=== PATIENT | male | born 1960 | race Caucasian/White ===

== ENCOUNTER 2021-08-21 08:37 | Day surgery (SDC) | payer OTHER ==
[~2021-08-21] VITALS: Ht 170.2 cm; Wt 91.9 kg
[~2021-08-21 08:37] MED LIST: ASPI325 PO; ASPI81CH PO; ATOR20 PO; CIPDEXSU LEFTEAR; EAR WAX DROPS15 ML LEFTEAR; GEMF600 PO; GLIM2 PO; LOSA25 PO; LOSA50 PO; METFORMIN HCL1000 MG PO; METO50ER PO; PIOG15 PO; SITA100T2 PO
--- NOTE | 2021-08-21 09:28 | NUR ---
08/21/21 0928 Victorino Mazariegos CALL LIGHT WITHIN REACH. TETRA DROPS AT 0923 PLEDGETT AT 0994
== END 2021-08-21 11:22 | disposition home or self-care (01) ==
LOC: ORSCSDS 08:37
PROVIDERS: Ophthalmology
PROC: 08RK3JZ Replacement of Left Lens with Synthetic Substitute, Percutaneous Approach (ICD-10-PCS; principal; 2021-08-21 10:00)
DX: H25.12 Age-related nuclear cataract, left eye (principal); E11.9 Type 2 diabetes mellitus without complications; I10 Essential (primary) hypertension; E66.9 Obesity, unspecified; Z68.31 Body mass index [BMI] 31.0-31.9, adult; Z87.891 Personal history of nicotine dependence; Z79.82 Long term (current) use of aspirin; Z79.84 Long term (current) use of oral hypoglycemic drugs; Z79.899 Other long term (current) drug therapy
CPT/HCPCS: 82947; J2001; J2250; J3010; J3301; J7040

== ENCOUNTER 2022-02-23 10:14 | Inpatient (IN) | payer OTHER ==
[~2022-02-23] VITALS: Ht 170.2 cm; Wt 88.3 kg
[~2022-02-23 10:14] MED LIST changes: -Actos15 MG PO; -Aspir 8181 MG PO; -CLOBETASOL EMOL15 G2 TOP; -TRULICITY0.75 MG/01 SC
[2022-02-23] MEDS ORDERED: Aspir 8181 MG PO (10:45)
[2022-02-23] MEDS ORDERED: CLOBETASOL EMOL15 G2 TOP (10:46)
[2022-02-23] MEDS ORDERED: LOSA50 PO (10:47)
[2022-02-23] MEDS ORDERED: GEMF600 PO (10:47)
[2022-02-23] MEDS ORDERED: METO50ER PO (10:48)
[2022-02-23 10:49] LABS: BASOPHILS ABSOLUTE AUTO 0.03 K/mm3 (0.00-0.23); BASOPHILS PERCENT AUTO 0 % (0-2); EOSINOPHILS ABSOLUTE AUTO 0.21 K/mm3 (0.00-0.68); EOSINOPHILS PERCENT AUTO 2 % (0-6); Hemoglobin 17.6 g/dL (13.5-17.5); IMMATURE GRAN ABSOLUTE AUTO 0.06 K/mm3 (0.00-0.10); IMMATURE GRAN PERCENT AUTO 1 % (0-1); LYMPHOCYTES ABSOLUTE AUTO 1.34 K/mm3 (0.84-5.20); LYMPHOCYTES PERCENT AUTO 14 % (21-46); MONOCYTES ABSOLUTE AUTO 0.65 K/mm3 (0.16-1.47); MONOCYTES PERCENT AUTO 7 % (4-13); Mean Corpuscular HGB 29.2 pg (26.0-34.0); Mean Corpuscular HGB Conc 35.2 g/dL (31.5-36.5); Mean Corpuscular Volume 83 fL (80-100); Mean Platelet Volume 10.6 fL (9.1-12.4); NEUTROPHILS ABSOLUTE AUTO 7.33 K/mm3 (1.96-9.15); NEUTROPHILS PERCENT AUTO 76 % (41-73); Platelet Count 248 K/mm3 (150-400); RDW Coefficient Variation 11.8 % (11.7-14.2); RDW Standard Deviation 35.5 fL (35.1-46.3); Red Blood Cell Count 6.03 M/mm3 (4.30-5.90); White Blood Cell Count 9.62 K/mm3 (4.00-11.30)
[2022-02-23] MEDS ORDERED: Actos15 MG PO (10:49)
[2022-02-23] MEDS ORDERED: TRULICITY0.75 MG/01 SC (10:51)
[2022-02-23 11:06] LABS: Albumin, Blood 3.5 g/dL (3.4-5.0); Albumin/Globulin Ratio 0.9 (0.8-1.8); Bilirubin, Total 1.1 mg/dL (0.1-1.0); Bun/Creatinine Ratio 26.2 (12.0-20.0); Calcium, Blood 9.2 mg/dL (8.5-10.1); Creatinine, Blood 0.76 mg/dL (0.60-1.20); Globulin, Blood 3.9 g/dL (2.2-4.0); Potassium, Blood 4.4 mmol/L (3.5-5.5); Total Protein, Blood 7.4 g/dL (6.4-8.2)
--- NOTE | 2022-02-23 20:05 | NUR ---
END OF SHIFT SUMMARY: PATIENT ARRIVED TO UNIT WITH AT SIDE. PATIENT REPORTED MILD, SUBSTERNAL CHEST PAIN. PATIENT REPORTED THAT IT WAS MUCH IMPROVED AND THAT IT WAS A 1/10. PATIENT DENIED RADIATION OF CHEST PAIN, SHORTNESS OF BREATH, NAUSEA/VOMITING OR DISPLAYED ANY DIAPHORESIS THROUGHOUT THE SHIFT. PATIENT ABLE TO TOLERATE HIS MEAL WITHOUT ANY CHANGES TO HIS STATUS. PATIENT ABLE TO SLEEP COMFORTABLY AFTER INITIAL ASSESSMENT AND ARRIVAL TO THE UNIT. VITALS STABLE IN COMPARISON TO PRIOR VITALS. KEPT DR. ROBERTS AWARE OF PATIENT'S STATUS AND LAB RESULTS. NEW ORDERS RECEIVED AND ENTERED.
[2022-02-23 20:39] LABS: Anti-Xa UFH, PHA Monitoring <0.10 IU/mL; International Normalized Ratio 0.98; Prothrombin Time Results 10.3 Sec (9.7-11.5)
[2022-02-24 03:15] LABS: BASOPHILS ABSOLUTE AUTO 0.05 K/mm3 (0.00-0.23); BASOPHILS PERCENT AUTO 1 % (0-2); EOSINOPHILS ABSOLUTE AUTO 0.31 K/mm3 (0.00-0.68); EOSINOPHILS PERCENT AUTO 4 % (0-6); Hematocrit 50.5 % (37.0-53.0); Hemoglobin 17.5 g/dL (13.5-17.5); IMMATURE GRAN ABSOLUTE AUTO 0.05 K/mm3 (0.00-0.10); IMMATURE GRAN PERCENT AUTO 1 % (0-1); LYMPHOCYTES ABSOLUTE AUTO 2.06 K/mm3 (0.84-5.20); LYMPHOCYTES PERCENT AUTO 24 % (21-46); MONOCYTES ABSOLUTE AUTO 0.63 K/mm3 (0.16-1.47); MONOCYTES PERCENT AUTO 7 % (4-13); Mean Corpuscular HGB 28.9 pg (26.0-34.0); Mean Corpuscular HGB Conc 34.7 g/dL (31.5-36.5); Mean Corpuscular Volume 84 fL (80-100); Mean Platelet Volume 10.5 fL (9.1-12.4); NEUTROPHILS PERCENT AUTO 64 % (41-73); Platelet Count 253 K/mm3 (150-400); RDW Standard Deviation 36.1 fL (35.1-46.3); Red Blood Cell Count 6.05 M/mm3 (4.30-5.90)
[2022-02-24 03:40] LABS: Albumin, Blood 3.4 g/dL (3.4-5.0); Anion Gap 10 mmol/L (6-16); Blood Urea Nitrogen 21 mg/dL (8-24); Bun/Creatinine Ratio 24.3 (12.0-20.0); CHOL/HDL RATIO 8.3; CO2, Blood 24 mmol/L (21-32); Calcium, Blood 8.6 mg/dL (8.5-10.1); Chloride, Blood 103 mmol/L (98-108); Cholesterol 281 mg/dL (50-200); Creatinine, Blood 0.86 mg/dL (0.60-1.20); Glomerular Filtration Rate 99 (60-); Glucose, Blood 230 mg/dL (70-99); HDL Cholesterol 34 mg/dL (>39); LDL/HDL RATIO Unable to Calculate; Low Density Lipoprotein Chol Unable to Calculate mg/dL (0-110); Magnesium, Blood 1.7 mg/dL (1.6-2.4); Phosphorus, Blood 3.5 mg/dL (2.5-4.9); Potassium, Blood 3.9 mmol/L (3.5-5.5); Sodium, Blood 137 mmol/L (136-145); Triglycerides 571 mg/dL (30-160); Very Low Density Lipoprot Chol Unable to Calculate mg/dL (6-32)
--- NOTE | 2022-02-24 05:01 | NUR ---
SHIFT SUMMARY A/OX4, IND TO BATHROOM. ELEVATED TROPS, HEPARIN DRIP STARTED THIS SHIFT. PT C/O INTERMITTENT /10 SUBSTERNAL CHEST PAIN THAT RADIATES SLIGHTLY TO LUE. TELE SR IN THE 80S. VSS, NO ACUTE CHANGES AT THIS TIME. BED IN LOWEST POSITION WITH CALL LIGHT IN REACH. WILL CONTINUE TO MONITOR AND REPORT TO ONCOMING RN.
[2022-02-24 08:52] LABS: SARS-Cov-2 (COVID-19) PCR, MMC NEGATIVE (NEGATIVE)
--- NOTE | 2022-02-24 10:57 | NUR ---
PT TO TRANSFER TO PCU 12 POST ANGIOGRAM PROCEDURE. REPORT GIVEN TO CHITRA PIANO MAKER. PT BELONGINGS TRANSPORTED TO ROOM PCU 12.
--- NOTE | 2022-02-24 14:26 | NUR ---
PT ARRIVES TO ICU 1 @ 1458, COMPLAINS OF HEADACHE AND STOMACH ACHE. PT ON AGGRASTAT @ 16.5 ML/HR, NITRO GTT @ 10MCG/MIN. RIGHT WRIST ACCESS SITE C/D/I, 12ML AIR IN TR BAND. AND MOM TO HIS BEDSIDE. PT'S BG 355, INSULIN COVERAGE GIVEN. DIET SQUIRT AND CHEESE GIVEN TO HELP WITH NAUSEA.
--- NOTE | 2022-02-24 17:11 | NUR ---
PT CONTINUES WITH NAUSEA, NITRO GTT PLACED ON STANDBY. PT CONT IN SR, SATS 95%, RESP. RATE 16. BP 137/86. DENIES CHEST PAIN, JUST NAUSEA ESPECIALLY WHEN LOOKING AROUND. AGGRASTAT CONTINUES SAME RATE. PT TRYING TO GET COMFORTABLE, NORMALLY A STOMACH SLEEPER. TR BAND NOT ADJUSTED YET. BLOOD SUGARS REMAIN ELEV. IN THE 300'S COVERED WITH INSULIN. MADE AWARE. ORDERS RECEIVED. BROTHER IN ROOM WITH PATIENT.
--- NOTE | 2022-02-24 17:41 | NUR ---
PT CONTINUES TO DEAL WITH NAUSEA AND HEADACHE, CONTINUES TO DENY CHEST PAIN. CAME IN AND SPOKE WITH PATIENT ABOUT HIS CARE AND CURRENT PLAN. PT AND BROTHER WERE ABLE TO ASK QUESTIONS. PT TOOK IN ABOUT 30% OF HIS DINNER, STATES THAT HE BELIEVES THE NAUSEA COMES FROM HIS HEAD "FEELING NOT RIGHT". IF HE TRIES TO FOCUS ON SOMETHING, HE FEELS LIKE "THROWING UP". DENIES ANY CHEST PAIN.
--- NOTE | 2022-02-24 19:05 | NUR ---
Assumed care. Report received from dayshift RN. Pt resting in bed, alert and oriented, on room air. IV access in L/forearm, Aggrastat running at 0.156 mcg/kg/min, Nitro on standby. TR band in place, R/radial site, 12ml in band currently per dayshift RN. No swelling/ecchymosis noted at site. VS stable, will continue to monitor.
--- NOTE | 2022-02-25 06:40 | NUR ---
Shift summary. Pt rested in bed throughout shift. Alert and oriented, pt asked for CPAP and then a NC for supplemental 02 while sleeping, he wasn't able to tolerate the CPAP. Currently on 02 at 1 l/min via NC. Additional IV placed in R/forearm. Aggrastat running at .156 mcg/kg/min. Pt troponin elevated during shift, Dr. Hernandez notified, no further orders given. VS stable throughout shift, see assessment for further details. Will continue to monitor and report off to dayshift RN.
[2022-02-25 07:01] LABS: BASOPHILS ABSOLUTE AUTO 0.04 K/mm3 (0.00-0.23); BASOPHILS PERCENT AUTO 0 % (0-2); EOSINOPHILS ABSOLUTE AUTO 0.18 K/mm3 (0.00-0.68); EOSINOPHILS PERCENT AUTO 2 % (0-6); Hemoglobin 16.6 g/dL (13.5-17.5); IMMATURE GRAN ABSOLUTE AUTO 0.06 K/mm3 (0.00-0.10); IMMATURE GRAN PERCENT AUTO 1 % (0-1); LYMPHOCYTES ABSOLUTE AUTO 1.43 K/mm3 (0.84-5.20); LYMPHOCYTES PERCENT AUTO 15 % (21-46); MONOCYTES ABSOLUTE AUTO 0.75 K/mm3 (0.16-1.47); MONOCYTES PERCENT AUTO 8 % (4-13); Mean Corpuscular HGB Conc 34.6 g/dL (31.5-36.5); Mean Corpuscular Volume 84 fL (80-100); Mean Platelet Volume 10.3 fL (9.1-12.4); NEUTROPHILS ABSOLUTE AUTO 7.42 K/mm3 (1.96-9.15); NEUTROPHILS PERCENT AUTO 75 % (41-73); Platelet Count 251 K/mm3 (150-400); RDW Coefficient Variation 12.1 % (11.7-14.2); RDW Standard Deviation 36.7 fL (35.1-46.3); Red Blood Cell Count 5.73 M/mm3 (4.30-5.90); White Blood Cell Count 9.88 K/mm3 (4.00-11.30)
[2022-02-25 07:20] LABS: Albumin, Blood 3.2 g/dL (3.4-5.0); Anion Gap 9 mmol/L (6-16); Blood Urea Nitrogen 19 mg/dL (8-24); Bun/Creatinine Ratio 23.2 (12.0-20.0); CO2, Blood 23 mmol/L (21-32); Calcium, Blood 8.6 mg/dL (8.5-10.1); Chloride, Blood 103 mmol/L (98-108); Creatinine, Blood 0.82 mg/dL (0.60-1.20); Glomerular Filtration Rate 100 (60-); Glucose, Blood 242 mg/dL (70-99); Magnesium, Blood 2.2 mg/dL (1.6-2.4); Phosphorus, Blood 2.8 mg/dL (2.5-4.9); Potassium, Blood 4.1 mmol/L (3.5-5.5); Sodium, Blood 135 mmol/L (136-145)
--- NOTE | 2022-02-25 07:26 | NUR ---
CARE OF PT ASSUMED AT 0700. PT SLEEPING, AWAKENS TO VOICE. DR HOUSTON IN TO SEE PT THIS AM. AGGRASTAT INFUSING AT 0.15/MCG/KG/MIN, GTT TO CONTINUE X18HRS. PLAVIX TO START TOMORROW. PT DENIES C/O CHEST PAIN/PRESSURE, DENIES NAUSEA. TR BAND WITH AIR REMOVED TO RIGHT WRIST, ART SITE WNL, WRIST IMMOBILIZER ON; WILL REMOVE TR BAND THIS AM. DR HOUSTON AWARE OF TROPONINS.
--- NOTE | 2022-02-25 11:36 | NUR ---
BURDEN IN TO SEE PT, PT PCU STATUS. PT SLEEPING W/O COMPLAINTS.
--- NOTE | 2022-02-25 12:11 | NUR ---
OOB TO CHAIR FOR LUNCH. BS 300, COVERED WITH 12UNITS INSULIN. PT DENIES PAIN.
--- NOTE | 2022-02-25 17:32 | NUR ---
REPORT GIVEN TO NATALI MENON RN
--- NOTE | 2022-02-25 18:42 | NUR ---
Patient arrived a short time ago and tucked into bed and hooked to monitor. He has TR Band site with clear opsite , no swelling, hematoma or blood, and wrist support in place. He is oriented and is able to communicate his needs. He has aggrostat infusingat 15.8 mls and stops at 1999 and give 300mg Plavix. He has bilateral FA IV's, left one infusing aggrastat and other flushed and SL'd. He is independent in room.
--- NOTE | 2022-02-26 06:08 | NUR ---
SHIFT SUMMARY PT ALERT AND ORIENTED X4. HR SR 60-90'S. AFEBRILE. BP STABLE. ON RA SATS OVER 95%. AGROSTAT SHUT OFF AT 1999 AND PLAVIX GIVEN PER MD ORDER. PT HAD X2 EPISODE OF EPISTAXIS EARLY IN EVENING. R RADIAL SITE C/D/I. INDEPENDENT FOR ADL'S. IN BED SLEEPING WITH CALL ALARM AT SIDE, WILL CONTINUE TO MONITOR UNTIL REPORT GIVEN TO DAYSHIFT RN
[2022-02-26] MEDS ORDERED: CLOP75 PO (12:21)
--- NOTE | 2022-02-26 12:51 | NUR ---
IVs REMOVED x2 AND PRESSURE DRESSED. PT EDCUATED ON ANGIO SITE, AND NEW MEDICATIONS, PT AWARE THAT CARDIOLOGY OFFICE WILL BE CALLING HIM FOR FOLLOW UP APPOINTMENT THEY WERE NOT ABLE TO SCHEDULE AT THE TIME THIS CALLED TO MAKE APPOINTMENT. PT EXPRESSED UNDERSTANDING OF DC TEACHING AND DENIES FURTHER QUESTIONS OR NEEDS
== END 2022-02-26 13:49 | disposition home or self-care (01) | DRG 271 ==
LOC: ER 10:14 → MEDS 10:15 → PCU 02-24 11:25 → ICUE 02-24 12:47 → PCU 02-25 18:37
PROVIDERS: Emergency Medicine; ADMIT Family Medicine
PROC: 027135Z Dilation of Coronary Artery, Two Arteries with Two Drug-eluting Intraluminal Devices, Percutaneous Approach (ICD-10-PCS; principal; 2022-02-24)
PROC: X2CY3T7 Extirpation of Matter from Great Vessel using Computer-aided Mechanical Aspiration, Percutaneous Approach, New Technology Group 7 (ICD-10-PCS; 2022-02-24)
PROC: B2111ZZ Fluoroscopy of Multiple Coronary Arteries using Low Osmolar Contrast (ICD-10-PCS; 2022-02-24)
DX: I21.4 Non-ST elevation (NSTEMI) myocardial infarction (principal); T82.855A Stenosis of coronary artery stent, initial encounter; T82.867A Thrombosis due to cardiac prosthetic devices, implants and grafts, initial encounter; Z88.5 Allergy status to narcotic agent; Z95.5 Presence of coronary angioplasty implant and graft; Z88.8 Allergy status to other drugs, medicaments and biological substances; I69.398 Other sequelae of cerebral infarction; Z20.822 Contact with and (suspected) exposure to COVID-19; E78.5 Hyperlipidemia, unspecified; I10 Essential (primary) hypertension; I25.2 Old myocardial infarction; Z79.82 Long term (current) use of aspirin; Z79.899 Other long term (current) drug therapy; Z79.84 Long term (current) use of oral hypoglycemic drugs; E11.65 Type 2 diabetes mellitus with hyperglycemia
CPT/HCPCS: 36415; 71045; 76937; 78451; 80053; 80061; 80069; 82947; 83036; 83735; 84443; 84484; 85025; 85520; 85610; 92973; 92978; 93005; 93010; 93306; 93454; 94660; 94762; 96374; 96375; 96376; 99152; 99153; 99285-25; A9270; A9500; C1725; C1753; C1757; C1769; C1874; C1887; C1894; C9600; G0378; J0360; J0461; J1644; J2250; J2405; J3010; J3246; J7030; J7040; Q9967; U0004

== ENCOUNTER → 2022-02-23 | Outpatient (CLI) | payer OTHER ==
[~2022-02-23] MED LIST changes: +Actos15 MG PO; +Amaryl1 MG PO; +Aspir 8181 MG PO; +CLOBETASOL EMOL15 G2 TOP; -GLIM2 PO; +TRULICITY0.75 MG/01 SC
[2022-02-23 10:16] LABS: BASOPHILS ABSOLUTE AUTO 0.05 K/mm3 (0.00-0.23); BASOPHILS PERCENT AUTO 1 % (0-2); EOSINOPHILS ABSOLUTE AUTO 0.23 K/mm3 (0.00-0.68); EOSINOPHILS PERCENT AUTO 3 % (0-6); Hematocrit 50.2 % (37.0-53.0); Hemoglobin 17.9 g/dL (13.5-17.5); IMMATURE GRAN ABSOLUTE AUTO 0.07 K/mm3 (0.00-0.10); IMMATURE GRAN PERCENT AUTO 1 % (0-1); LYMPHOCYTES ABSOLUTE AUTO 1.39 K/mm3 (0.84-5.20); LYMPHOCYTES PERCENT AUTO 17 % (21-46); MONOCYTES ABSOLUTE AUTO 0.71 K/mm3 (0.16-1.47); MONOCYTES PERCENT AUTO 9 % (4-13); Mean Corpuscular HGB 29.7 pg (26.0-34.0); Mean Corpuscular HGB Conc 35.7 g/dL (31.5-36.5); Mean Corpuscular Volume 83 fL (80-100); Mean Platelet Volume 11.2 fL (9.1-12.4); NEUTROPHILS ABSOLUTE AUTO 5.88 K/mm3 (1.96-9.15); NEUTROPHILS PERCENT AUTO 71 % (41-73); Platelet Count 232 K/mm3 (150-400); RDW Coefficient Variation 12.3 % (11.7-14.2); RDW Standard Deviation 36.7 fL (35.1-46.3); Red Blood Cell Count 6.02 M/mm3 (4.30-5.90); White Blood Cell Count 8.33 K/mm3 (4.00-11.30)
[2022-02-23 10:27] LABS: Albumin, Blood 3.6 g/dL (3.4-5.0); Albumin/Globulin Ratio 0.9 (0.8-1.8); Bilirubin, Total 1.1 mg/dL (0.1-1.0); Bun/Creatinine Ratio 17.7 (12.0-20.0); Calcium, Blood 9.2 mg/dL (8.5-10.1); Creatinine, Blood 1.13 mg/dL (0.60-1.20); Globulin, Blood 3.9 g/dL (2.2-4.0); Potassium, Blood 4.4 mmol/L (3.5-5.5); Total Protein, Blood 7.5 g/dL (6.4-8.2)
== END | disposition home or self-care (01) ==
LOC: LAB SHORT 10:09 → LAB 10:09
PROVIDERS: Physician Assistant
DX: R07.9 Chest pain, unspecified (principal)
CPT/HCPCS: 80053; 84484; 85025; 85379

== ENCOUNTER 2022-03-04 12:14 | Inpatient (IN) | payer OTHER ==
[~2022-03-04] VITALS: Ht 170.2 cm; Wt 87.7 kg
[~2022-03-04 12:14] MED LIST changes: +Actos15 MG PO; +Aspir 8181 MG PO; +CLOBETASOL EMOL15 G2 TOP; +CLOP75 PO; +TRULICITY0.75 MG/01 SC
[2022-03-04 12:46] LABS: BASOPHILS ABSOLUTE AUTO 0.04 K/mm3 (0.00-0.23); BASOPHILS PERCENT AUTO 1 % (0-2); EOSINOPHILS ABSOLUTE AUTO 0.24 K/mm3 (0.00-0.68); EOSINOPHILS PERCENT AUTO 3 % (0-6); Hematocrit 51.4 % (37.0-53.0); Hemoglobin 17.7 g/dL (13.5-17.5); IMMATURE GRAN ABSOLUTE AUTO 0.04 K/mm3 (0.00-0.10); IMMATURE GRAN PERCENT AUTO 1 % (0-1); LYMPHOCYTES ABSOLUTE AUTO 1.36 K/mm3 (0.84-5.20); LYMPHOCYTES PERCENT AUTO 18 % (21-46); MONOCYTES ABSOLUTE AUTO 0.63 K/mm3 (0.16-1.47); MONOCYTES PERCENT AUTO 9 % (4-13); Mean Corpuscular HGB 28.7 pg (26.0-34.0); Mean Corpuscular HGB Conc 34.4 g/dL (31.5-36.5); Mean Corpuscular Volume 83 fL (80-100); Mean Platelet Volume 10.3 fL (9.1-12.4); NEUTROPHILS ABSOLUTE AUTO 5.08 K/mm3 (1.96-9.15); NEUTROPHILS PERCENT AUTO 69 % (41-73); Platelet Count 248 K/mm3 (150-400); RDW Coefficient Variation 11.9 % (11.7-14.2); RDW Standard Deviation 35.8 fL (35.1-46.3); Red Blood Cell Count 6.16 M/mm3 (4.30-5.90); White Blood Cell Count 7.39 K/mm3 (4.00-11.30)
[2022-03-04 13:03] LABS: Albumin, Blood 3.9 g/dL (3.4-5.0); Albumin/Globulin Ratio 0.9 (0.8-1.8); Bilirubin, Total 0.9 mg/dL (0.1-1.0); Calcium, Blood 9.6 mg/dL (8.5-10.1); Creatinine, Blood 0.96 mg/dL (0.60-1.20); Globulin, Blood 4.3 g/dL (2.2-4.0); Potassium, Blood 4.5 mmol/L (3.5-5.5); Total Protein, Blood 8.2 g/dL (6.4-8.2)
[2022-03-05 01:08] LABS: Anti-Xa UFH, PHA Monitoring <0.10 IU/mL; International Normalized Ratio 1.05
[2022-03-05 03:14] LABS: BASOPHILS ABSOLUTE AUTO 0.05 K/mm3 (0.00-0.23); BASOPHILS PERCENT AUTO 1 % (0-2); EOSINOPHILS ABSOLUTE AUTO 0.42 K/mm3 (0.00-0.68); EOSINOPHILS PERCENT AUTO 5 % (0-6); Hemoglobin 16.1 g/dL (13.5-17.5); IMMATURE GRAN ABSOLUTE AUTO 0.05 K/mm3 (0.00-0.10); IMMATURE GRAN PERCENT AUTO 1 % (0-1); LYMPHOCYTES ABSOLUTE AUTO 2.28 K/mm3 (0.84-5.20); LYMPHOCYTES PERCENT AUTO 27 % (21-46); MONOCYTES ABSOLUTE AUTO 0.68 K/mm3 (0.16-1.47); MONOCYTES PERCENT AUTO 8 % (4-13); Mean Corpuscular HGB 29.4 pg (26.0-34.0); Mean Corpuscular Volume 84 fL (80-100); Mean Platelet Volume 10.1 fL (9.1-12.4); NEUTROPHILS ABSOLUTE AUTO 4.94 K/mm3 (1.96-9.15); NEUTROPHILS PERCENT AUTO 59 % (41-73); Platelet Count 249 K/mm3 (150-400); RDW Coefficient Variation 11.9 % (11.7-14.2); RDW Standard Deviation 36.1 fL (35.1-46.3); Red Blood Cell Count 5.47 M/mm3 (4.30-5.90); White Blood Cell Count 8.42 K/mm3 (4.00-11.30)
[2022-03-05 03:34] LABS: Bun/Creatinine Ratio 28.2 (12.0-20.0); Calcium, Blood 8.7 mg/dL (8.5-10.1); Creatinine, Blood 0.85 mg/dL (0.60-1.20); Magnesium, Blood 1.9 mg/dL (1.6-2.4); Potassium, Blood 4.1 mmol/L (3.5-5.5)
--- NOTE | 2022-03-05 05:09 | NUR ---
SHIFT SUMMARY PT. CAME IN OVERNIGHT AROUND 2100 WITH CHEST PAIN AND A CLIMBING TROPONIN. LAST TROPONIN WAS DRAWN AT 0300 AND CAME BACK A CRITICAL OF 3993. HEPARIN WAS STARTED AND LABS ARE ORDERED FOR 0700 TO ADJUST HEPARIN RATE. BP WAS WNL AND HR WAS NSR WITH RATES BETWEEN 70-90. ASIDE FROM CARDIAC COMPLAINTS, ALL OTHER SYSTEMS WERE WNL. PT. IS NOT HAVING CHEST PAIN AND IS RESTING COMFORTABLY AT THIS TIME.
--- NOTE | 2022-03-05 07:15 | NUR ---
INITIAL ASSESSMENT: Patient is resting on his left side in bed with eyes closed, easily awakens. He denies CP or SOB at this time. HRR, SR in the 70s with minimal st depression noted. LS CTA, Biox 97% on RA. BT+. PPP, no edema present. He has hep gtt at 15 units/kg/hr. VSS. Patient denies other needs at this time. Will continue to monitor.
--- NOTE | 2022-03-05 09:15 | NUR ---
Update: Cardiology is here to see the patient, plan is for an angiogram later today. Pt has been NPO since midnight. Patient denies chest pain at this time. Call light in reach.
--- NOTE | 2022-03-05 13:20 | NUR ---
Update: Patient arrived back from the catheterization laboratory technician, no interventions done. Patient may be possibly discharged this afternoon. TR band to right wrist, 9cc of air in band. Site is clear, no bleeding or hematoma noted. VSS. Patient denies other needs at this time. Call light in reach.
--- NOTE | 2022-03-05 17:31 | NUR ---
Summary: Patient is here with chest pain. He is alert and oriented. No C/O pain this shift. HRR in the 70s. LS Clear, biox is WNL on RA. Patients troponin peaked at 3993 and trended down from there. Dr. Gann took him to the collaborating supervising physician, his coronaries are clear. TR band to right wrist fully recovered without rebleed or hematoma. Arm board to right wrist. Blood sugars covered with high sliding scale. Patient has been independent in the room with BRP. He has been cleared by Cardiology. Dr. Cunningham would like to keep the patient one more night for monitoring as he was started on Brillinta and Crestor and has had previous reactions to similar medications. Patient is currently resting in bed. WIll report to oncoming RN.
--- NOTE | 2022-03-06 06:04 | NUR ---
NO ACUTE EVENTS OVERNIGHT. NO COMPLAINTS OF CHEST PAIN OR PRESSURE. PT DENIED SHORTNESS OF BREATH. RIGHT RADIAL PUNCTURE SITE CLEAN/DRY/INTACT WITH SLIGHT ECCHYMOSIS AT SITE. EDUCATION PROVIDED REGARDING RESTRICTIONS OF USE OF RIGHT UPPER EXTREMITY FOR THE NEXT 72 HOURS. EDUCATION PROVIDED FOR THE MEDICATIONS BRILINTA AND CRESTOR.
--- NOTE | 2022-03-06 09:22 | NUR ---
CARE ASSUMPTION THIS RN ASSUMED CARE AT 0700 FROM MICHELE BRITT. VSS. TELE SR 70. PATIENT IS ALERT AND ORIENTED X4. NEURO INTACT. PERRLA. PATIENT REPORTS NO PAIN. PATIENT REPROTS NO CHEST PAIN/PRESSURE. STRONG RADIAL AND PEDIS PULSE. NO EDEMA NOTED. NO CARDIAC DISTRESS THIS AM. PATIENT REPROTS NO SHORTNESS OF BREATH. CLEAR LUNG SOUNDS. PATIENT ABD IS SOFT NONTENDER AND ACTIVE. PATIENT SKIN IS CLEAN DRY AND INACT. S/P RIGHT RADIAL SITE IS CLEAN DRY AND INACT, SMALL BRUSING AT SITE, BUT NO HEMATOMA OR TENDERNESS. PATIENT IS INDEPDENT IN THE ROOM AND INDEPDENT WHEN DOING ADLS. SEE SHIFT ASSESSMENT FOR FURTHER DETAILS. PATIENT CALLS IF NEEDED ASSISTANCE. PATIENT WAS ASKING ABOUT GOING HOME THIS AM. THIS RN EDUCATED HIM ON THE PLAN OF CARE AND WE WILL KNOW FINALIZED DETAILS AFTER THE DOCTOR ROUNDS. PATIENT VERBALIZED UNDERSTANDING. PATIENT TAKE MEDS HOLE WITH WATER AND CAN TAKE MULTIPLE AT A TIME. PATIENT EDUCATED ON MEDICATION AND EDUCATED ON INSULIN THAT PATIENT RECEIVED WITH MORNING MEDICATIONS. PATIENT VOCALIZED CONCERN WITH HIS BLOOD SUGAR BEING HIGHER THAN NORMAL. THIS RN EDUCATED THAT STRESS CAN INCREASE HIS BLOOD SUGAR AND THIS COULD BE WHY. PATIENT VERABLIZED UNDERSTANDNING. PLAN OF CARE UP TO DATE. WILL CONTINUE TO MONITOR AND PROVIDE CARE.
[2022-03-06] MEDS ORDERED: AMLO5 PO (11:28)
[2022-03-06] MEDS ORDERED: METO50ER PO (11:29)
[2022-03-06] MEDS ORDERED: PANTOPRAZOLE SO40 M2 PO (11:30)
[2022-03-06] MEDS ORDERED: TICA90TA PO (11:31)
[2022-03-06] MEDS ORDERED: ROSU10TA PO (11:31)
--- NOTE | 2022-03-06 12:53 | NUR ---
UPDATE PATIENT HOME MED REC COMPLETED AND NEW MEDICATIONS FOR DISCHARGE HAVE BEEN FAXED OVER TO HIS PHARMACY, AT [facility]. AWAITING FOR FINALIZED DISCHARGE ORDERS AND THEN THIS RN WILL GO OVER ANY NEW DISCHARGE EDUCATION. THIS RN WENT OVER DISCHARGE MED EDUCATION AND RADIAL SITE CARE.
[2022-03-06] MEDS ORDERED: METF500 PO (13:41)
--- NOTE | 2022-03-06 14:37 | NUR ---
DISCHARGE PATIENT PROVIDED DISCHARGE EDUCATION BY THIS RN AND FINISHING RANGE FEEDER YUE. WENT OVER MEDICATIONS IN DETAIL AND FOLLOW UP APPOINTMENTS. PRINTED HAND OUTS WERE GIVEN TO PATIENT TO REFER TO FOR EDUCATION ON MEDICATIONS. MEDICATIONS FAXED TO [facility] AND RECEIVED CONFIRMATION OF RECEIVING THE FAX. PATIENT LEFT WITH FAMILY AND ALL PERSONALY BELONGINGS. PATIENT WAS IN NO DISTRESS WHEN LEAVING THE HOSPITAL.
== END 2022-03-06 14:02 | disposition home or self-care (01) | DRG 281 ==
LOC: ER 12:14 → PCU 12:15
PROVIDERS: Family Medicine; Physician Assistant; ADMIT Internal Medicine
PROC: 4A023N7 Measurement of Cardiac Sampling and Pressure, Left Heart, Percutaneous Approach (ICD-10-PCS; principal; 2022-03-05)
PROC: B2111ZZ Fluoroscopy of Multiple Coronary Arteries using Low Osmolar Contrast (ICD-10-PCS; 2022-03-05)
DX: I25.119 Atherosclerotic heart disease of native coronary artery with unspecified angina pectoris (principal); I21.4 Non-ST elevation (NSTEMI) myocardial infarction; E87.1 Hypo-osmolality and hyponatremia; I69.354 Hemiplegia and hemiparesis following cerebral infarction affecting left non-dominant side; E11.65 Type 2 diabetes mellitus with hyperglycemia; E78.5 Hyperlipidemia, unspecified; I25.2 Old myocardial infarction; I10 Essential (primary) hypertension; Z95.5 Presence of coronary angioplasty implant and graft; Z88.5 Allergy status to narcotic agent; Z88.6 Allergy status to analgesic agent; Z88.8 Allergy status to other drugs, medicaments and biological substances; Z79.82 Long term (current) use of aspirin; Z79.84 Long term (current) use of oral hypoglycemic drugs; Z71.6 Tobacco abuse counseling; Z71.51 Drug abuse counseling and surveillance of drug abuser; Z79.899 Other long term (current) drug therapy; Z79.02 Long term (current) use of antithrombotics/antiplatelets; Z87.891 Personal history of nicotine dependence
CPT/HCPCS: 36415; 71045; 76937; 80048; 80053; 82947; 83735; 84484; 85025; 85520; 85610; 85730; 93005; 93010; 93454; 96374; 99152; 99153; 99285-25; A9270; C1769; C1887; C1894; G0378; J1644; J1815; J2250; J2405; J3010; J7030; J7040; Q9967

== ENCOUNTER 2023-09-24 19:15 | Observation (INO) | payer OTHER ==
[~2023-09-24] VITALS: Ht 167.6 cm; Wt 81.2 kg
[~2023-09-24 19:15] MED LIST changes: +AMLO5 PO; +METF500 PO; +PANTOPRAZOLE SO40 M2 PO; +ROSU10TA PO; +TICA90TA PO
[2023-09-25] MEDS ORDERED: INSULIN GL100 UNIT/2 SQ (00:32)
[2023-09-25] MEDS ORDERED: Ondansetron HCl 2 MG / ML 2ML Vial IV ONE (00:40)
[2023-09-25] MEDS ORDERED: FentaNYL Citrate 50 MCG/ML 2 ML Injection IV ONE (00:40)
[2023-09-25] MEDS ORDERED: NS 1,000 ML IV SCH ×2 (00:40→01:10)
[2023-09-25] MEDS ORDERED: Ondansetron HCl 2 MG / ML 2ML Vial IV PRN (01:10)
[2023-09-25] MEDS ORDERED: FLU VACC QS2023-24(6MOS UP)/PF 60 MCG/0.5 ML SYRINGE IM ONE (01:10)
[2023-09-25] MEDS ORDERED: FentaNYL Citrate 50 MCG/ML 2 ML Injection IV PRN ×2 (01:15→07:30)
[2023-09-25 02:12] LABS: BASOPHILS ABSOLUTE AUTO 0.03 K/mm3 (0.00-0.23); BASOPHILS PERCENT AUTO 0 % (0-2); EOSINOPHILS ABSOLUTE AUTO 0.16 K/mm3 (0.00-0.68); EOSINOPHILS PERCENT AUTO 2 % (0-6); Hematocrit 42.9 % (37.0-53.0); IMMATURE GRAN ABSOLUTE AUTO 0.03 K/mm3 (0.00-0.10); IMMATURE GRAN PERCENT AUTO 0 % (0-1); LYMPHOCYTES ABSOLUTE AUTO 1.61 K/mm3 (0.84-5.20); LYMPHOCYTES PERCENT AUTO 19 % (21-46); MONOCYTES ABSOLUTE AUTO 0.64 K/mm3 (0.16-1.47); MONOCYTES PERCENT AUTO 8 % (4-13); Mean Corpuscular HGB 28.9 pg (26.0-34.0); Mean Corpuscular Volume 83 fL (80-100); Mean Platelet Volume 10.1 fL (9.1-12.4); NEUTROPHILS ABSOLUTE AUTO 5.87 K/mm3 (1.96-9.15); NEUTROPHILS PERCENT AUTO 70 % (41-73); Platelet Count 205 K/mm3 (150-400); RDW Standard Deviation 36.6 fL (35.1-46.3); Red Blood Cell Count 5.19 M/mm3 (4.30-5.90); White Blood Cell Count 8.34 K/mm3 (4.00-11.30)
[2023-09-25 02:25] LABS: International Normalized Ratio 1.06; Prothrombin Time Results 11.1 Sec (9.7-11.5)
[2023-09-25 02:30] LABS: Alanine Aminotransfer (ALT/SGP 18 U/L (12-78); Albumin, Blood 2.9 g/dL (3.4-5.0); Albumin/Globulin Ratio 0.9 (0.8-1.8); Alk Phos 70 U/L (50-136); Anion Gap 2 mmol/L (6-16); Aspartate Aminotrans (AST/SGOT 13 U/L (12-37); Bilirubin, Total 1.5 mg/dL (0.1-1.0); Blood Urea Nitrogen 19 mg/dL (8-24); Bun/Creatinine Ratio 24.9 (12.0-20.0); CHOL/HDL RATIO 4.6; CO2, Blood 28 mmol/L (21-32); Calcium, Blood 8.4 mg/dL (8.5-10.1); Chloride, Blood 108 mmol/L (98-108); Cholesterol 172 mg/dL (50-200); Creatinine, Blood 0.76 mg/dL (0.60-1.20); Globulin, Blood 3.2 g/dL (2.2-4.0); Glomerular Filtration Rate 101 (60-); Glucose, Blood 153 mg/dL (70-99); HDL Cholesterol 37 mg/dL (>39); LDL/HDL RATIO 2.8; Low Density Lipoprotein Chol 103 mg/dL (0-110); Potassium, Blood 3.6 mmol/L (3.5-5.5); Sodium, Blood 138 mmol/L (136-145); Total Protein, Blood 6.1 g/dL (6.4-8.2); Triglycerides 158 mg/dL (30-160); Very Low Density Lipoprot Chol 31 mg/dL (6-32)
--- NOTE | 2023-09-25 03:10 | NUR ---
NEW ADMIT. PATIENT ADMITTED TO MEDICAL FLOOR ROOM 352 FROM THE ER. PATIENT ARRIVED TO ROOM VIA WHEELCHAIR AND ONE PERSON ASSIST. PATIENT ABLE TO TRANSFER WITH STEADY GAIT TO HOSPITAL BED. BMAT DONE; PATIENT SCORE IS A 4. PATIENT HAS RIGHT ABDOMINAL PAIN R/T PANCREATITIS; MEDICATED FOR PAIN PER EMAR. PATIENT IS PLESANT AND ABLE TO MAKE HIS NEEDS KNOWN. PATIENT IS ON RA SATTING > 94%. PATIENT HAS NO S/S OF DISTRESS NOTED AT THIS TIME. PATIENT IS RESTING WITH RESPIRATIONS EQUAL AND UNLABORED. BED IS LOCKED IN THE LOWEST POSITION WITH CALL LIGHT IN REACH. CARE IS ONGOING.
[2023-09-25] MEDS ORDERED: HUMALOG KW100 UNIT/1 (03:35)
--- NOTE | 2023-09-25 03:58 | NUR ---
PATIENT C/O 10 ABDOMINAL PAIN. HOSPITALIST CONTACTED FOR PAIN. PATIENTS NEXT AVALIABLE DOSE NOT DUE YET. ORDERED FOR 1-2MG OF DILAUDID IV Q6H FOR PAIN.
[2023-09-25] MEDS ORDERED: HYDROmorphone HCl/Pf 1MG SYR IV PRN (04:15)
--- NOTE | 2023-09-25 04:31 | NUR ---
HOSPITALIST CALLED AT 0412 D/T PATIENTS ALLERGY TO CODIENE AND THE ORDER FOR DILAUDID. DR. GALDAMEZ INSTRUCTED THIS RN THAT DILAUDID ORDER WAS OKAY FOR PATIENT TO TAKE AND TO PROCEED WITH ORDER OF DILAUDID 1-2MG IV Q6H FOR PAIN.
[2023-09-25 04:52] VITALS: BP 179/88
[2023-09-25 05:25] VITALS: BP 175/98
[2023-09-25] MEDS ORDERED: HydrALAZINE HCl 20 MG / ML 1ML Vial IV ONE (05:25)
[2023-09-25] MEDS ORDERED: Clobetasol Prop 0.05% Cream 15 gm TOP PRN (07:25)
[2023-09-25] MEDS ORDERED: Insulin Human Lispro 100 Units/ML 3ML Syringe SC SCH (07:30)
[2023-09-25 07:35] VITALS: BP 159/72
[2023-09-25] MEDS ORDERED: HydrALAZINE HCl 20 MG / ML 1ML Vial IV PRN (07:40)
[2023-09-25] MEDS ORDERED: DiphenhydrAMINE HCl 50 MG/ML 1ML Vial IV PRN (07:40)
[2023-09-25] MEDS ORDERED: ALPRAZolam 0.25 MG Tab PO PRN (07:40)
[2023-09-25] MEDS ORDERED: Acetaminophen 325 MG TABLET PO PRN (07:40)
[2023-09-25] MEDS ORDERED: HYDROcodone 5-APAP 325 TAB PO PRN (07:40)
[2023-09-25] MEDS ORDERED: Polyethylene Glycol 3350 17 gm PO PRN (07:45)
[2023-09-25] MEDS ORDERED: TraZODone HCl 50 MG Tab PO PRN (07:45)
[2023-09-25] MEDS ORDERED: Sennosides 8.6 MG Tab PO PRN (07:45)
[2023-09-25] MEDS ORDERED: Piperacillin/Tazobactam Sod 3.375 GM in NS 50 ML IV SCH (08:00)
[2023-09-25] MEDS ORDERED: Enoxaparin 40 MG/0.4 ML SYR SC SCH (09:00)
[2023-09-25] MEDS ORDERED: Insulin Glargine-Yfgn 100 Unit/mL 3 ML SYR SC SCH (09:00)
[2023-09-25] MEDS ORDERED: Aspirin 81 MG TabEC PO SCH (09:00)
[2023-09-25] MEDS ORDERED: Losartan Potassium 50 MG Tab PO SCH (09:00)
--- NOTE | 2023-09-25 09:57 | NUR ---
NOTE PT RESTING QUIETLY. SIPS AND CHIPS TO START. NORCO EFFECTIVE FOR PAIN CONTROL. PT RESTING QUIETLY. ANTIBIOTIC STARTED. CT ABD DONE. CARE ONGOING.
[2023-09-25 14:59] VITALS: BP 118/65
--- NOTE | 2023-09-25 17:00 | NUR ---
NOTE PT RESTING. TOLERATED CLEAR LIQUID LUNCH. DRANK SLOWLY. DENIED INCREASE IN ABD PAIN, NAUSEA OR BLOATING. MEDICATED X1 WITH NORCO AND FENTAYL X1. UP SBA. IV SITE CHANGED D/T IT BEING POSITIONAL. IVF INFUSING PER ORDER. CARE ONGOING.
[2023-09-25 19:20] VITALS: BP 113/70
[2023-09-26 04:16] LABS: BASOPHILS ABSOLUTE AUTO 0.03 K/mm3 (0.00-0.23); BASOPHILS PERCENT AUTO 0 % (0-2); EOSINOPHILS ABSOLUTE AUTO 0.25 K/mm3 (0.00-0.68); EOSINOPHILS PERCENT AUTO 3 % (0-6); Hematocrit 45.8 % (37.0-53.0); Hemoglobin 16.1 g/dL (13.5-17.5); IMMATURE GRAN ABSOLUTE AUTO 0.03 K/mm3 (0.00-0.10); IMMATURE GRAN PERCENT AUTO 0 % (0-1); LYMPHOCYTES ABSOLUTE AUTO 1.18 K/mm3 (0.84-5.20); LYMPHOCYTES PERCENT AUTO 14 % (21-46); MONOCYTES ABSOLUTE AUTO 0.87 K/mm3 (0.16-1.47); MONOCYTES PERCENT AUTO 10 % (4-13); Mean Corpuscular HGB 29.4 pg (26.0-34.0); Mean Corpuscular HGB Conc 35.2 g/dL (31.5-36.5); Mean Corpuscular Volume 84 fL (80-100); Mean Platelet Volume 10.4 fL (9.1-12.4); NEUTROPHILS ABSOLUTE AUTO 6.21 K/mm3 (1.96-9.15); NEUTROPHILS PERCENT AUTO 72 % (41-73); Platelet Count 222 K/mm3 (150-400); RDW Standard Deviation 36.7 fL (35.1-46.3); Red Blood Cell Count 5.47 M/mm3 (4.30-5.90); White Blood Cell Count 8.57 K/mm3 (4.00-11.30)
[2023-09-26 04:26] VITALS: BP 142/72
[2023-09-26 04:37] LABS: Albumin, Blood 2.9 g/dL (3.4-5.0); Albumin/Globulin Ratio 0.8 (0.8-1.8); Bilirubin, Total 1.8 mg/dL (0.1-1.0); Bun/Creatinine Ratio 14.6 (12.0-20.0); Calcium, Blood 8.8 mg/dL (8.5-10.1); Creatinine, Blood 1.37 mg/dL (0.60-1.20); Globulin, Blood 3.7 g/dL (2.2-4.0); Magnesium, Blood 2.1 mg/dL (1.6-2.4); Potassium, Blood 3.9 mmol/L (3.5-5.5); Total Protein, Blood 6.6 g/dL (6.4-8.2)
--- NOTE | 2023-09-26 05:40 | NUR ---
SHIFT SUMMARY. PATIENT IS ALERT AND ORIENTED, INDEPENDENT IN ROOM, CALLS APPROPRIATELY AND IS ABLE TO MAKE NEEDS KNOWN. PATIENT HAS HAD NO ACUTE EVENTS OR CHANGES NOTED THIS SHIFT. PATIENT C/O PAIN; MEDICATED WITH PO PAIN MEDICATION X1-SEE EMAR. PATIENT REPORTS TOLERATING CLEAR LIQUID DIET TODAY. PATIENTS BED IS LOCKED IN THE LOWEST POSITION WITH CALL LIGHT IN REACH. NO S/S OF DISTRESS NOTED AT THIS TIME. CARE IS ONGOING.
[2023-09-26 08:03] VITALS: BP 141/67
[2023-09-26] MEDS ORDERED: CIPR500 PO (10:27)
--- NOTE | 2023-09-26 11:14 | NUR ---
DISCHARGE SUMMARY PT DISCHARGED TO HOME. PT LEFT ROOM VIA WHEELCHAIR AT THIS TIME WITH CLOTH PRINTER ESCORT. PT AGREES TO FOLLOW UP WITH DR. JIMENEZ, AND TO TAKE MEDICATIONS PRESCRIBED. PT PHARMACY IS [facility] BUT MEDICATION WAS TOO EXPENSIVE FOR PT, SO [facility] SO THIS NURSE SENT PRESCRIPTIONS TO [facility], PT AGREES TO [facility] END THE ANTIBIOTICS FOR 3 DOSES UNTIL THE VA OPENS AND HE CAN ESTABLISH CARE THROUGH THAT [facility]. IV DC'D AND BELONGINGS RETURNED. ALL DISCHARGE INSTRUCTIONS AND EDUCATION DISCUSSED, ALL QUESTIONS ANSWERED.
== END 2023-09-26 11:14 | disposition home or self-care (01) ==
LOC: ER 19:15 → MEDS 19:16 → ER 09-25 01:09 → MEDS 09-25 03:11
PROVIDERS: Hospitalist; ADMIT Internal Medicine
DX: K85.90 Acute pancreatitis without necrosis or infection, unspecified (principal); E78.5 Hyperlipidemia, unspecified; I10 Essential (primary) hypertension; I25.2 Old myocardial infarction; E11.9 Type 2 diabetes mellitus without complications; Z79.82 Long term (current) use of aspirin; Z79.84 Long term (current) use of oral hypoglycemic drugs; Z79.4 Long term (current) use of insulin
CPT/HCPCS: 36415; 74176; 76705; 80053; 80061; 82947; 83690; 83735; 83880; 85025; 85610; 96361; 96374; 96375; 99285-25; A9270; J0360; J1650; J1815; J2405; J2543; J3010; J7030

== ENCOUNTER → 2023-09-28 | Outpatient (CLI) | payer OTHER ==
[~2023-09-28] MED LIST changes: +CIPR500 PO; +HUMALOG KW100 UNIT/1; +INSULIN GL100 UNIT/2 SQ
[2023-09-29 18:56] LABS: Appearance, Urine Clear (Clear); Bilirubin, Urine Neg (Neg); Blood, Urine 2+ (Neg); Color, Urine Yellow (P-Yellow); Glucose Qualitative, Urine 4+ (Neg); Ketones, Urine Neg (Neg); Leukocyte Esterase, Urine Neg (Neg); Nitrite, Urine Neg (Neg); Protein, Urine 3+ (Neg); Urobilinogen, Urine NORM (Normal)
[2023-09-29 19:09] LABS: White Blood Cells, Urine 0-2 /hpf (0-5)
[2023-09-29 19:10] LABS: Bacteria Rare /hpf; Squamous Epithelial Cells Not Seen /hpf (Few)
== END | disposition home or self-care (01) ==
LOC: LAB 15:30 → LAB SHORT 15:30
PROVIDERS: Registered Nurse
DX: R10.9 Unspecified abdominal pain (principal)
CPT/HCPCS: 81001

== ENCOUNTER 2024-04-23 19:08 | Emergency (ER) | payer OTHER ==
[~2024-04-23] VITALS: Ht 172.7 cm; Wt 99.8 kg
[~2024-04-23 19:08] MED LIST changes: +TRAZ50 PO; +Tenecteplase 50 MG / Kit IV ONE
[2024-04-23 19:46] LABS: BASOPHILS ABSOLUTE AUTO 0.04 K/mm3 (0.00-0.23); BASOPHILS PERCENT AUTO 1 % (0-2); EOSINOPHILS ABSOLUTE AUTO 0.16 K/mm3 (0.00-0.68); EOSINOPHILS PERCENT AUTO 2 % (0-6); Hematocrit 45.6 % (37.0-53.0); Hemoglobin 15.7 g/dL (13.5-17.5); IMMATURE GRAN ABSOLUTE AUTO 0.03 K/mm3 (0.00-0.10); IMMATURE GRAN PERCENT AUTO 0 % (0-1); LYMPHOCYTES ABSOLUTE AUTO 1.66 K/mm3 (0.84-5.20); LYMPHOCYTES PERCENT AUTO 22 % (21-46); MONOCYTES ABSOLUTE AUTO 0.61 K/mm3 (0.16-1.47); MONOCYTES PERCENT AUTO 8 % (4-13); Mean Corpuscular HGB Conc 34.4 g/dL (31.5-36.5); Mean Corpuscular Volume 81 fL (80-100); Mean Platelet Volume 10.2 fL (9.1-12.4); NEUTROPHILS ABSOLUTE AUTO 4.99 K/mm3 (1.96-9.15); NEUTROPHILS PERCENT AUTO 67 % (41-73); Platelet Count 214 K/mm3 (150-400); RDW Coefficient Variation 12.9 % (11.7-14.2); RDW Standard Deviation 38.1 fL (35.1-46.3); White Blood Cell Count 7.49 K/mm3 (4.00-11.30)
[2024-04-23] MEDS ORDERED: TAMSULOSIN HCL0.4 M1 PO (20:14)
[2024-04-23] MEDS ORDERED: PANTOPRAZOLE SO40 M2 PO (20:14)
[2024-04-23] MEDS ORDERED: Amiodarone HCl200 MG PO (20:15)
[2024-04-23] MEDS ORDERED: CARVEDILOL6.25 MG PO (20:15)
[2024-04-23] MEDS ORDERED: CYCL10 PO (20:16)
[2024-04-23] MEDS ORDERED: ATOR40TA PO (20:16)
[2024-04-23] MEDS ORDERED: Tenecteplase 50 MG / Kit IV ONE (20:25)
[2024-04-23] MEDS ORDERED: Labetalol HCL 5 MG/ML 4ML Injection (Single Dose) IV ONE ×2 (20:25→20:55)
[2024-04-23 20:40] LABS: Alanine Aminotransfer (ALT/SGP 42 U/L (12-78); Albumin, Blood 3.4 g/dL (3.4-5.0); Albumin/Globulin Ratio 0.9 (0.8-1.8); Alk Phos 90 U/L (50-136); Anion Gap 13 mmol/L (3-11); Aspartate Aminotrans (AST/SGOT 27 U/L (12-37); Bilirubin, Total 0.8 mg/dL (0.1-1.0); Blood Urea Nitrogen 16 mg/dL (8-24); CO2, Blood 26 mmol/L (21-32); Chloride, Blood 101 mmol/L (98-108); Creatinine, Blood 0.84 mg/dL (0.60-1.20); Ethanol (Alcohol), Blood, Med <3 mg/dL; Globulin, Blood 3.8 g/dL (2.2-4.0); Glomerular Filtration Rate 98 (60-); Glucose, Blood 330 mg/dL (70-99); Potassium, Blood 4.3 mmol/L (3.5-5.5); Sodium, Blood 136 mmol/L (136-145); Total Protein, Blood 7.2 g/dL (6.4-8.2)
[2024-04-23] MEDS ORDERED: NiCARdipine HCL 50 MG in NS 250 ML IV SCH (21:05)
[2024-04-23] MEDS ORDERED: HydrALAZINE HCl 20 MG / ML 1ML Vial IV ONE (21:15)
[2024-04-23] MEDS ORDERED: propofoL 100 ML IV SCH (21:35)
[2024-04-23] MEDS ORDERED: NS 1,000 ML IV SCH (21:40)
[2024-04-23 21:41] VITALS: BP 181/90
== END 2024-04-23 22:02 | disposition short-term general hospital (02) ==
LOC: ER 19:08
PROVIDERS: Emergency Medicine
DX: I63.511 Cerebral infarction due to unspecified occlusion or stenosis of right middle cerebral artery (principal); I63.211 Cerebral infarction due to unspecified occlusion or stenosis of right vertebral artery; R29.810 Facial weakness; E11.9 Type 2 diabetes mellitus without complications; E78.5 Hyperlipidemia, unspecified; I10 Essential (primary) hypertension; I25.2 Old myocardial infarction; Z88.5 Allergy status to narcotic agent; Z88.8 Allergy status to other drugs, medicaments and biological substances; Z79.4 Long term (current) use of insulin; Z79.84 Long term (current) use of oral hypoglycemic drugs; Z79.82 Long term (current) use of aspirin; Z79.899 Other long term (current) drug therapy
CPT/HCPCS: 31500; 51702; 70450; 70496; 70498; 80053; 80320; 82947; 85025; 93005; 93010; 96365-59; 96375-59; 96376-59; 99291-25; 99292; J0360; J2704; J3101; J7030; J7050; Q9967